=== PATIENT | female | born 1995 | race Caucasian/White ===

== ENCOUNTER 2021-06-15 19:25 | Inpatient (IN) | payer OTHER ==
[~2021-06-15] VITALS: Ht 160 cm; Wt 46.7 kg
[~2021-06-15 19:25] MED LIST changes: -FAMOTIDINE20 MG; -INTESTINEX680 M1 PO; -PEPCID AC20 MG PO; -PRENATE ELITE1 EAC2 PO; -PROFERRIN-FORT1 EACH PO
[2021-06-17] MEDS ORDERED: FAMOTIDINE20 MG (15:51)
[2021-06-21] MEDS ORDERED: PRENATE ELITE1 EAC2 PO (09:07)
[2021-06-21] MEDS ORDERED: PROFERRIN-FORT1 EACH PO (09:07)
[2021-06-21] MEDS ORDERED: PEPCID AC20 MG PO (09:07)
[2021-06-21] MEDS ORDERED: INTESTINEX680 M1 PO (09:07)
== END 2021-06-21 12:37 | disposition home or self-care (01) | DRG 832 ==
LOC: OBS/DEL 19:25 → LDR 06-16 07:44 → OB/GYN 06-19 11:15
PROVIDERS: ADMIT Obstetrics & Gynecology; ATTEND Obstetrics & Gynecology
PROC: 4A1HXFZ Monitoring of Products of Conception, Cardiac Rhythm, External Approach (ICD-10-PCS; 2021-06-16)
PROC: BY4CZZZ Ultrasonography of Second Trimester, Single Fetus (ICD-10-PCS; 2021-06-16)
PROC: 30233N1 Transfusion of Nonautologous Red Blood Cells into Peripheral Vein, Percutaneous Approach (ICD-10-PCS; principal; 2021-06-18)
PROC: BY4CZZZ Ultrasonography of Second Trimester, Single Fetus (ICD-10-PCS; 2021-06-18)
PROC: BW40ZZZ Ultrasonography of Abdomen (ICD-10-PCS; 2021-06-18)
DX: O98.812 Other maternal infectious and parasitic diseases complicating pregnancy, second trimester (principal); D59.12 Cold autoimmune hemolytic anemia; A49.3 Mycoplasma infection, unspecified site; O99.012 Anemia complicating pregnancy, second trimester; D57.1 Sickle-cell disease without crisis; D64.9 Anemia, unspecified; B34.9 Viral infection, unspecified; Z3A.14 14 weeks gestation of pregnancy; Z20.822 Contact with and (suspected) exposure to COVID-19
CPT/HCPCS: 240

== ENCOUNTER → 2021-06-15 | Emergency (ER) | payer OTHER ==
[~2021-06-15] VITALS: Ht 160 cm; Wt 52.2 kg
[~2021-06-15] MED LIST: FAMOTIDINE20 MG; INTESTINEX680 M1 PO; PEPCID AC20 MG PO; PRENATE ELITE1 EAC2; PRENATE ELITE1 EAC2 PO; PROFERRIN-FORT1 EACH PO
== END | disposition home or self-care (01) ==
LOC: ER 14:55
DX: J06.9 Acute upper respiratory infection, unspecified (principal)

== ENCOUNTER 2021-11-25 07:23 | Outpatient (CLI) | payer OTHER ==
[~2021-11-25 07:23] MED LIST changes: +FAMOTIDINE20 MG; +INTESTINEX680 M1 PO; +PEPCID AC20 MG PO; +PRENATE ELITE1 EAC2 PO; +PROFERRIN-FORT1 EACH PO
== END 2021-11-25 10:16 | disposition home or self-care (01) ==
LOC: NST 07:23
PROVIDERS: ATTEND Obstetrics & Gynecology
DX: Z34.03 Encounter for supervision of normal first pregnancy, third trimester (principal)

== ENCOUNTER 2021-12-01 07:17 | Inpatient (IN) | payer OTHER ==
[~2021-12-01] VITALS: Ht 162.6 cm; Wt 57.2 kg
== END 2021-12-03 12:40 | disposition home or self-care (01) | DRG 768 ==
LOC: OB/GYN 07:17 → LDR 07:17 → OB/GYN 20:41
PROVIDERS: ADMIT Obstetrics & Gynecology; ATTEND Obstetrics & Gynecology
PROC: 10E0XZZ Delivery of Products of Conception, External Approach (ICD-10-PCS; principal; 2021-12-01)
PROC: 0DQR0ZZ Repair Anal Sphincter, Open Approach (ICD-10-PCS; 2021-12-01)
PROC: 0W8NXZZ Division of Female Perineum, External Approach (ICD-10-PCS; 2021-12-01)
PROC: 3E0P7VZ Introduction of Hormone into Female Reproductive, Via Natural or Artificial Opening (ICD-10-PCS; 2021-12-01)
PROC: 10907ZC Drainage of Amniotic Fluid, Therapeutic from Products of Conception, Via Natural or Artificial Opening (ICD-10-PCS; 2021-12-01)
PROC: 4A1HXFZ Monitoring of Products of Conception, Cardiac Rhythm, External Approach (ICD-10-PCS; 2021-12-01)
DX: O70.20 Third degree perineal laceration during delivery, unspecified (principal); Z37.0 Single live birth; O41.03X0 Oligohydramnios, third trimester, not applicable or unspecified; O36.5930 Maternal care for other known or suspected poor fetal growth, third trimester, not applicable or unspecified; Z3A.38 38 weeks gestation of pregnancy